=== PATIENT | male | born 1965 | race Caucasian/White ===

== ENCOUNTER 2016-12-13 22:22 | Emergency (ER) | payer OTHER ==
[~2016-12-13] VITALS: Ht 172.7 cm; Wt 68.0 kg
[2016-12-13 22:32] VITALS: BP 137/98
--- NOTE | 2016-12-13 22:59 | ED GENERAL ADULT ---
History of Present Illness General Chief Complaint: General Adult Stated Complaint: RECTAL BLEEDING/CHEST COLD Source: patient, friend Exam Limitations: no limitations Vital Signs & Intake/Output Vital Signs & Intake/Output Vital Signs Date Time Temp Pulse Resp B/P Pulse O2 O2 Flow FiO2 Ox Delivery Rate 12/13 2232 96.9 80 18 137/98 95 Room Air ED Intake and Output 12/14 0000 12/13 1200 Intake Total Output Total Balance Patient 150 lb Weight Allergies Coded Allergies: No Known Allergies (12/13/16) Reconcile Medications No Known Home Medications Triage Note: PT TO TRIAGE WITH C/O RECTAL BLEEDING SINCE THIS MORNING, PT REPORTS BRIGHT RED BLOOD IN STOOL AND ON TOILET PAPER. HX OF HEMORRHOID. PT DENIES ANY PAIN, DENIES N/V, DENIES SOB. VSS. Triage Nurses Notes Reviewed? yes HPI: Patient is a 51-year-old male presents complaining of intermittent rectal bleeding. Patient reports he has been having rectal bleeding for several months , last for a couple of days then resolves. Patient reports rectal bleeding for the past 2 days. Patient is unsure if he has a hemorrhoid. Patient reports blood coats the stool and he notices blood on the toilet paper. Patient drinks alcohol daily, at least a 12 pack of beer. Pain is 0 out of 10. Patient denies abdominal pain, nausea, vomiting, fevers, chills. (PEDRO LENTZ) Past History Travel History Traveled to [place] past 21 day No Medical History Any Pertinent Medical History? see below for history Respiratory: bronchitis Psychiatric: ALCOHOL ABUSE Surgical History Surgical History: none Psychosocial History What is your primary language [place]ian Tobacco Use: Current Daily Use Daily Tobacco Use Amount/Type: => 5 Cigarettes daily ETOH Use: heavy use, alcoholic Illicit Drug Use: denies illicit drug use Family History Hx Contributory? No (PEDRO LENTZ) Review of Systems Review of Systems Constitutional: Denies: chills, fever. EENTM: Reports: no symptoms. Respiratory: Reports: cough. Denies: short of breath, wheezing. Cardiovascular: Denies: chest pain. GI: Reports: bloody stool. Denies: abdominal pain, nausea, vomiting. Genitourinary: Reports: no symptoms. Musculoskeletal: Reports: no symptoms. Skin: Reports: no symptoms. Neurological/Psychological: Reports: no symptoms. Hematologic/Endocrine: Reports: see HPI. Immunologic/Allergic: Reports: no symptoms. (PEDRO LENTZ) Physical Exam Physical Exam General Appearance: alert, awake Head: atraumatic, normal appearance Eyes: Bilateral: normal appearance, PERRL, EOMI. Ears, Nose, Throat: normal pharynx, normal ENT inspection, hearing grossly normal Neck: normal inspection, supple, full range of motion Respiratory: normal breath sounds, chest non-tender, no respiratory distress, lungs clear Cardiovascular: regular rate/rhythm Gastrointestinal: normal bowel sounds, soft, non-tender Rectal: EXTERNAL HEMORRHOID, PINK, NONTENDER. bROWN STOOL, HEME-NEGATIVE Back: normal inspection, normal range of motion Extremities: normal inspection, normal capillary refill, normal range of motion Neurologic/Psych: awake, alert, oriented x 3 Skin: intact, normal color, warm/dry Core Measures ACS in differential dx? No CVA/TIA Diagnosis: No Severe Sepsis Present: No Septic Shock Present: No (PEDRO LENTZ) Progress Differential Diagnoses I considered the following diagnoses in my evaluation of the patient: Hemorrhoidal bleeding, esophageal varices, peptic ulcer disease, diverticular bleed, anemia Plan of Care: Orders Procedure Date/time Status PROTHROMBIN TIME 12/13 2307 Active COMPREHENSIVE METABOLIC PANEL 12/13 2307 Active CBC WITHOUT DIFFERENTIAL 12/13 2307 Active 12/13/2016 11:23:41 PM: Patient left emergency department prior to blood work. I was not able to discuss follow-up or have patient sign out AGAINST MEDICAL ADVICE. Patient left the ED prior to any further discussion from the. (PEDRO LENTZ) Initial ED EKG: none (PEDRO LENTZ) Departure Departure Disposition: HOME OR SELF CARE Condition: Stable Clinical Impression Primary Impression: External hemorrhoid Secondary Impressions: Rectal bleeding Referrals: PATIENT HAS NO PRIMARY CARE DR (PCP/Family) Departure Forms: Customer Survey General Discharge Information Prescriptions: Current Visit Scripts No Known Home Medications (PEDRO LENTZ) PA/SPREADER OPERATOR Co-Sign Statement Statement: ED Attending supervision documentation- x I saw and evaluated the patient. I have also reviewed all the pertinent lab results and diagnostic results. I agree with the findings and the plan of care as documented in the PA's/SPREADER OPERATOR's documentation. [] I have reviewed the ED Record and agree with the PA's/SPREADER OPERATOR's documentation. [] Additions or exceptions (if any) to the PAs/SPREADER OPERATOR's note and plan are summarized below: [] (EVELYN SHINE,TEMITOPE) Critical Care Note Critical Care Note Critical Care Time: non-applicable (TRACI SEPULVEDA,PEDRO)
== END 2016-12-13 23:21 ==
LOC: ERH 22:22
DX: K64.4 Residual hemorrhoidal skin tags (principal)